=== PATIENT | female | born 1965 | race Caucasian/White ===

== ENCOUNTER 2020-04-10 13:35 | Emergency (ER) | payer OTHER ==
[~2020-04-10] VITALS: Ht 157.5 cm; Wt 113.4 kg
[~2020-04-10 13:35] MED LIST: (None)64.8 MG PO; ALPR1 PO; BENA20 PO; CEPH500 PO; FLUO20; HYDACE5 PO; IBUP800 PO; Keflex500 MG PO; Loperamide2 MG PO; META800 PO; NITR100CA PO; Norco 5-325 Ta1 EACH PO; PHENO30 PO; PHENO60; PROM25 PO; Percocet 5-3251 EACH PO; Prozac20 MG PO; RXHYDACE PO; TOBR.3OPSO OP; Zofran Odt8 MG SL
[2020-04-10] MEDS ORDERED: PHENO60 PO (14:40)
[2020-04-10] MEDS ORDERED: Percocet 7.5-31 EACH PO (15:13)
[2020-04-10] MEDS ORDERED: LIDO700A20 TOP (15:13)
== END 2020-04-10 15:37 | disposition home or self-care (01) ==
LOC: ER 13:35
DX: H92.02 Otalgia, left ear (principal); H61.22 Impacted cerumen, left ear; Z88.0 Allergy status to penicillin; Z88.2 Allergy status to sulfonamides; Z88.5 Allergy status to narcotic agent; I10 Essential (primary) hypertension; F17.210 Nicotine dependence, cigarettes, uncomplicated; Z79.899 Other long term (current) drug therapy
CPT/HCPCS: 96372; 99282-25; J1885

== ENCOUNTER 2020-08-28 18:40 | Emergency (ER) | payer OTHER ==
[~2020-08-28] VITALS: Ht 162.6 cm; Wt 122.5 kg
[~2020-08-28 18:40] MED LIST changes: +LIDO700A20 TOP; +PHENO60 PO; +Percocet 7.5-31 EACH PO
[2020-08-28] MEDS ORDERED: Prozac40 MG PO (19:01)
[2020-08-28] MEDS ORDERED: BENHYD1012 (19:01)
[2020-08-28] MEDS ORDERED: HYDR1TAB94 PO (21:03)
== END 2020-08-28 21:19 | disposition home or self-care (01) ==
LOC: ER 18:40
DX: S93.402A Sprain of unspecified ligament of left ankle, initial encounter (principal); G40.909 Epilepsy, unspecified, not intractable, without status epilepticus; I10 Essential (primary) hypertension; F17.210 Nicotine dependence, cigarettes, uncomplicated; Z88.0 Allergy status to penicillin; Z88.2 Allergy status to sulfonamides; Z88.5 Allergy status to narcotic agent; Z79.899 Other long term (current) drug therapy; W10.9XXA Fall (on) (from) unspecified stairs and steps, initial encounter
CPT/HCPCS: 73610; 96374; 96375; 99284-25; A9270-GY; J1885; J2405

== ENCOUNTER → 2024-03-13 | Outpatient (CLI) | payer OTHER ==
[~2024-03-13] MED LIST changes: +BENHYD1012; +HYDR1TAB94 PO; +Prozac40 MG PO
== END | disposition home or self-care (01) ==
LOC: LAB SHORT 14:00 → LAB EV 14:00
DX: N39.0 Urinary tract infection, site not specified (principal)
CPT/HCPCS: 87086

== ENCOUNTER 2025-01-23 08:42 | Day surgery (SDC) | payer OTHER ==
[~2025-01-23] VITALS: Ht 162.6 cm; Wt 102.7 kg
[2025-01-23] MEDS ORDERED: propofoL 20 ML IV ONE (09:28)
[2025-01-23] MEDS ORDERED: Ondansetron HCl 2 MG / ML 2ML Vial ONE (09:28)
[2025-01-23] MEDS ORDERED: FentaNYL Citrate 50 MCG/ML 2 ML Injection ONE (09:28)
[2025-01-23] MEDS ORDERED: Dexamethasone Sod Phos 10 MG/ML 1ML VIAL ONE (09:28)
[2025-01-23] MEDS ORDERED: Sugammadex Sodium 200 MG/2ML SDV (100 MG/ML) ONE (09:28)
[2025-01-23] MEDS ORDERED: Clindamycin 600mg in D5W 50 ML IV SCH (09:30)
[2025-01-23] MEDS ORDERED: Lactated Ringer's 1,000 ML IV ONE (10:05)
--- NOTE | 2025-01-23 10:26 | NUR ---
01/23/25 Zoe Lyman PT'S DAUGHTER, KYLAH NIETO, WAS GIVEN THE PAPER PRESCRIPTION FOR 5/325MG OF NORCO TO TAKE TO PERFERRED PHARMACY ([facility]). COPY WAS MADE. PT'S DAUGHTER, KYLAH, SIGNED DOCUMENT.
[2025-01-23] MEDS ORDERED: Methylene Blue 1% 100 MG/10 ML VIAL ONE (10:40)
[2025-01-23] MEDS ORDERED: Bupivacaine 0.5% HCl 5 MG/ML 30MLVIAL XX ONE (11:07)
--- NOTE | 2025-01-23 12:31 | NUR ---
01/23/25 1231 Seema Barraza PT ARRIVES TO SDU, DROWSY BUT A&O. PT STATES SHE'S HAVING SOME PAIN TO R NIPPLE AREA, BUT IT'S TOLERABLE. PT STATES READINESS FOR PO LIQUIDS. VSS, ON RA. DRESSING C/D/I. NO VISIBLE SIGNS OF DISTRESS NOTED.
[2025-01-23] MEDS ORDERED: HYDROcodone 5-APAP 325 TAB ONE (12:42)
[2025-01-23 12:58] VITALS: BP 144/69
== END 2025-01-23 13:30 | disposition home or self-care (01) ==
LOC: ORSCSDS 08:42
PROVIDERS: Surgery
PROC: 07B50ZX Excision of Right Axillary Lymphatic, Open Approach, Diagnostic (ICD-10-PCS; principal; 2025-01-23 10:30)
PROC: 0HBT0ZZ Excision of Right Breast, Open Approach (ICD-10-PCS; principal; 2025-01-23 10:30)
DX: C50.011 Malignant neoplasm of nipple and areola, right female breast (principal); C77.3 Secondary and unspecified malignant neoplasm of axilla and upper limb lymph nodes; Z17.0 Estrogen receptor positive status [ER+]; Z17.21 Progesterone receptor positive status; Z17.32 Human epidermal growth factor receptor 2 negative status; I12.9 Hypertensive chronic kidney disease with stage 1 through stage 4 chronic kidney disease, or unspecified chronic kidney disease; N18.9 Chronic kidney disease, unspecified; G40.89 Other seizures; Z79.899 Other long term (current) drug therapy; F17.290 Nicotine dependence, other tobacco product, uncomplicated; F17.210 Nicotine dependence, cigarettes, uncomplicated; E66.9 Obesity, unspecified; Z68.38 Body mass index [BMI] 38.0-38.9, adult
CPT/HCPCS: 38792; 88307; A9270; A9520; J1100; J2405; J2704; J3010; Q9968